=== PATIENT | male | born 1935 | race African-American/Black ===

== ENCOUNTER 2017-05-05 14:35 | Emergency (ER) | payer MEDICARE, OTHER ==
[~2017-05-05] VITALS: Ht 175.3 cm; Wt 63.5 kg
[2017-05-05 14:45] VITALS: BP 128/44
[2017-05-05 15:45] LABS: MEAN CORPUSCULAR HGB CONC 33.4 G/DL (32.0-36.0); MEAN CORPUSCULAR VOLUME 108 FL (80-99); MEAN PLATELET VOLUME 7.5 FL (6.5-10.1); PLATELET COUNT 359 K/UL (150-450); RED BLOOD COUNT 2.36 M/UL (4.70-6.10); RED CELL DISTRIBUTION WIDTH 21.9 % (11.6-14.8)
[2017-05-05 15:56] LABS: TROPONIN I < 0.30 ng/mL (<=0.30)
[2017-05-05 15:58] LABS: WHITE BLOOD COUNT 28.3 K/UL (4.8-10.8)
[2017-05-05 15:59] LABS: ALANINE AMINOTRANSFERASE 12 U/L (3-41); ALBUMIN/GLOBULIN RATIO 1.4 (1.0-2.7); ANION GAP 12 (5-15); ASPARTATE AMINO TRANSFERASE 17 U/L (5-40); CALCIUM 9.5 mg/dL (8.6-10.2); CARBON DIOXIDE 26 mEQ/L (20-30); CHLORIDE 102 mEQ/L (98-107); CREATININE 1.8 mg/dL (0.7-1.2); HEMOLYSIS 0; POTASSIUM 4.3 mEQ/L (3.4-4.9); SODIUM 140 mEQ/L (135-145); TOTAL PROTEIN 7.1 g/dL (6.6-8.7)
[2017-05-05 16:10] LABS: CKMB < 1.5 ng/mL (< 6.7)
--- NOTE | 2017-05-05 16:42 | Diagnostic Imaging Report ---
Indication: Chest pain Technique: One view of the chest Comparison: none Findings: Lungs and pleural spaces are clear. Heart size is upper limits normal. Impression: No acute process
[2017-05-05 16:52] VITALS: BP 116/43
[2017-05-05 17:53] LABS: ANISOCYTOSIS 1+; BAND NEUTROPHILS % (MANUAL) 7 % (0-8); BASOPHILS % (MANUAL) 1 % (0-2); EOSINOPHILS % (MANUAL) 3 % (0-3); HYPOCHROMASIA 1+; LYMPHOCYTES % (MANUAL) 22 % (20-45); NEUTROPHILS % (MANUAL) 56 % (45-75); PLATELET ESTIMATE ADEQUATE; PLATELET MORPHOLOGY NORMAL; TOTAL CELLS COUNTED 100
[2017-05-05 17:54] LABS: MACROCYTES 2+
--- NOTE | 2017-05-05 18:13 | Emergency Room Report ---
History of Present Illness General Chief Complaint: Generalized Weakness Source: Patient, EMS Present Illness HPI 81-year-old male presents to ED for evaluation. Patient states that he was feeling weak today. Family called 911. Patient states he vomited just prior to arrival. Patient states he does feel better. Per EMS patient was hypotensive, 80s over 30s in the field. Upon arrival patient's blood pressure is improved. Patient denies any fevers or chills. Denies chest pain or shortness of breath. No other aggravating or leading factors. Denies any other associated symptoms Allergies: Coded Allergies: No Known Allergies (Unverified , 05/05/17) Patient History Past Medical History: none, DM, HTN, CA Past Surgical History: none Pertinent Family History: none Social History: Denies: smoking, alcohol use, drug use Immunizations: UTD Reviewed Nursing Documentation: PMH: Agreed, PSxH: Agreed Nursing Documentation-PMH Past Medical History: No History, Except For Hx Cardiac Problems: Yes - STENT Hx Hypertension: Yes Hx Diabetes: Yes Review of Systems All Other Systems: negative except mentioned in HPI Physical Exam Vital Signs Date Time Temp Pulse Resp B/P (MAP) Pulse Ox O2 Delivery O2 Flow Rate FiO2 05/05/17 14:32 60 20 85/37 95 Room Air 05/05/17 14:45 97.1 Sp02 EP Interpretation: reviewed, normal General Appearance: no apparent distress, alert, GCS 15, non-toxic Head: normocephalic, atraumatic Eyes: bilateral eye normal inspection, bilateral eye PERRL ENT: hearing grossly normal, normal pharynx, no angioedema, normal voice Neck: full range of motion, supple/symm/no masses Respiratory: chest non-tender, lungs clear, normal breath sounds, speaking full sentences Cardiovascular #1: regular rate, rhythm, no edema Cardiovascular #2: 2+ carotid (R), 2+ carotid (L), 2+ radial (R), 2+ radial (L) , 2+ dorsalis pedis (R), 2+ dorsalis pedis (L) Gastrointestinal: normal bowel sounds, non tender, soft, non-distended, no guarding, no rebound Rectal: deferred Genitourinary: normal inspection, no CVA tenderness Musculoskeletal: back normal, gait/station normal, normal range of motion, non- tender Neurologic: alert, oriented x3, responsive, motor strength/tone normal, sensory intact, speech normal Psychiatric: judgement/insight normal, memory normal, mood/affect normal, no suicidal/homicidal ideation Reflexes: 3+ bicep (R), 3+ bicep (L), 3+ tricep (R), 3+ tricep (L), 3+ knee (R) , 3+ knee (L) Skin: normal color, no rash, warm/dry, well hydrated Lymphatic: no adenopathy Medical Decision Making Diagnostic Impression: Primary Impression: Episode of generalized weakness ER Course Hospital Course 81-year-old male presenting to ED with generalized weaknes, hypotensive in field Differential diagnoses include: Pneumonia, UTI, sepsis, dehydration, CA/ unstable angina Clinical course Patient placed on stretcher. 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 After initial history and physical, I ordered labs, IV fluids, EKG, chest x-ray, blood cultures, UA. Labs - electrolytes ok, marked leukocytosis, troponins negative, lactate 1.8 EKG - NSR, LBBB CXR - no acute process Abx given. IVFS given. Because of insurance patient will be transferred I feel this is a highly complex case requiring extensive working including EKG/ Rhythm strip, Xray/CT/US, Blood/urine lab work, repeat exams while in ED, and administration of strong opiates/narcotics for pain control, admission to hospital or close patient follow up. Diagnosis - generalized weakness Transferred in serious condition Labs Test 05/05/17 15:10 05/05/17 15:22 Lactic Acid Level 1.80 mmol/L (0.66-2.22) White Blood Count 28.3 K/UL (4.8-10.8) Red Blood Count 2.36 M/UL (4.70-6.10) Hemoglobin 8.5 G/DL (14.2-18.0) Hematocrit 25.4 % (42.0-52.0) Mean Corpuscular Volume 108 FL (80-99) Mean Corpuscular Hemoglobin 36.0 PG (27.0-31.0) Mean Corpuscular Hemoglobin Concent 33.4 G/DL (32.0-36.0) Red Cell Distribution Width 21.9 % (11.6-14.8) Platelet Count 359 K/UL (150-450) Mean Platelet Volume 7.5 FL (6.5-10.1) Neutrophils (%) (Auto) % (45.0-75.0) Lymphocytes (%) (Auto) % (20.0-45.0) Monocytes (%) (Auto) % (1.0-10.0) Eosinophils (%) (Auto) % (0.0-3.0) Basophils (%) (Auto) % (0.0-2.0) Differential Total Cells Counted 100 Neutrophils % (Manual) 56 % (45-75) Lymphocytes % (Manual) 22 % (20-45) Monocytes % (Manual) 11 % (1-10) Eosinophils % (Manual) 3 % (0-3) Basophils % (Manual) 1 % (0-2) Band Neutrophils 7 % (0-8) Platelet Estimate Adequate Platelet Morphology Normal Hypochromasia 1+ Anisocytosis 1+ Macrocytosis 2+ Sodium Level 140 mEQ/L (135-145) Potassium Level 4.3 mEQ/L (3.4-4.9) Chloride Level 102 mEQ/L (98-107) Carbon Dioxide Level 26 mEQ/L (20-30) Anion Gap 12 (5-15) Blood Urea Nitrogen 18 mg/dL (7-23) Creatinine 1.8 mg/dL (0.7-1.2) Estimat Glomerular Filtration Rate mL/min (>60) Glucose Level 149 mg/dL (74-106) Calcium Level 9.5 mg/dL (8.6-10.2) Total Bilirubin 0.6 mg/dL (0.0-1.2) Aspartate Amino Transf (AST/SGOT) 17 U/L (5-40) Alanine Aminotransferase (ALT/SGPT) 12 U/L (3-41) Alkaline Phosphatase 109 U/L (40-129) Total Creatine Kinase 22 U/L (38-174) Creatine Kinase MB < 1.5 ng/mL (< 6.7) Creatine Kinase MB Relative Index Troponin I < 0.30 ng/mL (<=0.30) Pro-B-Type Natriuretic Peptide 714 pg/mL (0-450) Total Protein 7.1 g/dL (6.6-8.7) Albumin 4.2 g/dL (3.5-5.2) Globulin 2.9 g/dL Albumin/Globulin Ratio 1.4 (1.0-2.7) EKG Diagnostic Results Rate: normal Rhythm: NSR ST Segments: other - LBBB ASA given to the pt in ED: No Rhythm Strip Diag. Results EP Interpretation: yes Rhythm: NSR, no PVC's, no ectopy Chest X-Ray Diagnostic Results Chest X-Ray Diagnostic Results : Chest X-Ray Ordered: Yes # of Views/Limited/Complete: 1 View Indication: Other - weakness EP Interpretation: Yes Interpretation: no consolidation, no effusion, no pneumothorax, no acute cardiopulmonary disease Impression: No acute disease Electronically Signed by: Electronically signed by Randall Awan MD Last Vital Signs Date Time Temp Pulse Resp B/P (MAP) Pulse Ox O2 Delivery O2 Flow Rate FiO2 05/05/17 16:52 97.4 63 18 116/43 98 Room Air Status: improved Disposition: XFER [facility] Condition: Serious Referrals: NON PHYSICIAN (PCP) RANDALL AWAN M.D. May 05, 2017 18:13
[2017-05-05 18:47] VITALS: BP 134/58
[2017-05-05 19:17] VITALS: BP 134/58
--- NOTE | 2017-05-06 12:53 | Cardiology Report ---
APPROVED REPORT EKG Measurement Heart [id number] Normal sinus rhythm Left bundle branch block Abnormal ECG
[2017-05-07 10:53] LABS: OTHERS PATHOLOGIST COMMENT
== END 2017-05-05 19:23 | disposition left against medical advice (07) ==
LOC: EDBD 14:35 → EMR 16:21
DX: R53.1 Weakness (principal); I10 Essential (primary) hypertension; E11.9 Type 2 diabetes mellitus without complications; I25.2 Old myocardial infarction
CPT/HCPCS: 36415; 71010; 80053; 82550; 82553; 83605; 83880; 84484; 85007; 85025; 87040; 93005; 96361; 96365; 99284; J1956